=== PATIENT | female | born 1950 | race Caucasian/White ===

== ENCOUNTER → 2016-09-12 | Outpatient (CLI) | payer MEDICARE, BC ==
[~2016-09-12] MED LIST: BUMEX2 MG PO; ZOLOFT 50MG50 MG PO
== END ==
LOC: MC.RAD 15:20
DX: Z12.31 Encounter for screening mammogram for malignant neoplasm of breast (principal)

== ENCOUNTER → 2017-10-10 | Outpatient (CLI) | payer MEDICARE, BC | LOC: MC.RAD 07:00 | DX: Z12.31 Encounter for screening mammogram for malignant neoplasm of breast (principal) ==

== ENCOUNTER → 2018-10-29 | Outpatient (CLI) | payer MEDICARE, BC | LOC: MC.RAD 08:52 | DX: Z12.31 Encounter for screening mammogram for malignant neoplasm of breast (principal); N63.20 Unspecified lump in the left breast, unspecified quadrant ==

== ENCOUNTER → 2018-11-05 | Outpatient (CLI) | payer MEDICARE, BC | LOC: MC.RAD 08:55 | DX: N60.02 Solitary cyst of left breast (principal) ==

== ENCOUNTER → 2019-06-04 | Outpatient (CLI) | payer MEDICARE, BC | LOC: MC.RAD 05-13 10:00 | DX: N60.02 Solitary cyst of left breast (principal) | CPT/HCPCS: G0279 ==

== ENCOUNTER → 2019-11-23 | Outpatient (CLI) | payer MEDICARE, BC | LOC: MC.RAD 11-04 16:00 | DX: Z12.31 Encounter for screening mammogram for malignant neoplasm of breast (principal) ==

== ENCOUNTER → 2020-11-23 | Outpatient (CLI) | payer MEDICARE, BC | LOC: MC.RAD 12:54 | DX: Z12.31 Encounter for screening mammogram for malignant neoplasm of breast (principal) ==

== ENCOUNTER → 2023-02-03 | Outpatient (CLI) | payer MEDICARE | LOC: MC.RAD 10:15 | DX: Z12.31 Encounter for screening mammogram for malignant neoplasm of breast (principal) ==

== ENCOUNTER 2023-03-21 13:53 | Outpatient (CLI) | payer MEDICARE, BC ==
[~2023-03-21] VITALS: Ht 162.6 cm; Wt 87.2 kg
[2023-03-21 14:10] VITALS: BP 123/81; PULSE 71; TEMP 97.8
[2023-03-21] MEDS ORDERED: Denosumab 60 MG/ML SYRINGE SQ ONE (14:15)
[2023-03-21] MEDS ORDERED: VITAMIN D 50,1.25 MG PO (14:22)
[2023-03-21] MEDS ORDERED: MULTIVITAMIN FO1 CAP PO (14:23)
[2023-03-21] MEDS ORDERED: ZYRTEC 10MG10 MG PO (14:24)
[2023-03-21] MEDS ORDERED: PROLIA60 MG/ML SQ (14:25)
[2023-03-21] MEDS ORDERED: NEURIVA PLUS B1 EACH PO (14:25)
[2023-03-21] MEDS ORDERED: ARTHROZENE PO (14:25)
--- NOTE | 2023-03-21 14:49 | NUR ---
Pt tolerated prolia injection and observation period without issue. No s/s of reaction. Pt escorted out to waiting room to meet her daughter. Free of complaints at discharge.
== END 2023-03-21 14:49 | disposition home or self-care (01) ==
LOC: EUO 13:53
DX: M81.0 Age-related osteoporosis without current pathological fracture (principal)
CPT/HCPCS: J0897

== ENCOUNTER 2023-10-09 15:44 | Outpatient (CLI) | payer MEDICARE, BC ==
[~2023-10-09] VITALS: Ht 162.6 cm; Wt 84.5 kg
[~2023-10-09 15:44] MED LIST changes: +ARTHROZENE PO; +MULTIVITAMIN FO1 CAP PO; +NEURIVA PLUS B1 EACH PO; +PROLIA60 MG/ML SQ; +VITAMIN D 50,1.25 MG PO; +ZYRTEC 10MG10 MG PO
[2023-10-09 15:50] VITALS: BP 131/77; PULSE 65; TEMP 97.6
[2023-10-09] MEDS ORDERED: KRILL OIL 5001 EACH PO (15:54)
--- NOTE | 2023-10-09 16:14 | NUR ---
pt tolerated injection well. vs remained within normal limits. pt ambulated independently to main [facility] upon discharge. pt remained free from acute concerns and complaints.
[2023-10-09] MEDS ORDERED: Denosumab 60 MG/ML SYRINGE SQ ONE (16:15)
== END 2023-10-09 16:15 | disposition home or self-care (01) ==
LOC: EUO 15:44
DX: M81.0 Age-related osteoporosis without current pathological fracture (principal)
CPT/HCPCS: J0897